=== PATIENT | male | born 1950 | race Caucasian/White ===

== ENCOUNTER 2018-03-12 09:09 | Inpatient (IN) | payer MEDICARE, MEDICAID ==
[~2018-03-12] VITALS: Ht 160 cm; Wt 68.9 kg
[~2018-03-12 09:09] MED LIST: AMLO10TA80 PO; ASPI-1159 PO; DIVA-18 PO; DIVA250T4 PO; ENAL5TAB PO; FAMO-134 PO; GABA100C PO; KEPP500 PO; LAM25 PO; LIP40 PO; NEPVIT PO; RISO02 PO
[2018-03-12] MEDS ORDERED: DIGO125T82 PO (10:06)
[2018-03-12] MEDS ORDERED: ASCO500C6 PO (10:06)
[2018-03-12] MEDS ORDERED: ACET-2178 PO (10:06)
[2018-03-12] MEDS ORDERED: DULCOLAX (10:06)
[2018-03-12] MEDS ORDERED: NORCO (10:06)
[2018-03-12] MEDS ORDERED: FERROUS SULFATE (10:06)
[2018-03-12] MEDS ORDERED: NA P230E RC (10:06)
[2018-03-12] MEDS ORDERED: MOM PO (10:06)
[2018-03-12] MEDS ORDERED: MULT-1146 MT (10:06)
[2018-03-12] MEDS ORDERED: GABA-531 MT ×2 (10:06→18:03)
[2018-03-12] MEDS ORDERED: CRAN425C6 PO (10:06)
[2018-03-12] MEDS ORDERED: TRAMADOL 50MG TABLET PO ONE (10:15)
[2018-03-12] MEDS ORDERED: VANCOMYCIN 1 G PREMIX 200 ML IV SCH (10:15)
[2018-03-12 11:00] LABS: BASOPHILS % 0.3 % (0.0-2.0); EOSINOPHILS % 0.9 % (0.0-5.0); HEMATOCRIT. 37.1 % (42.0-52.0); HEMOGLOBIN. 12.3 g/dL (14.0-18.0); LYMPHOCYTES % 19.6 % (20.0-50.0); MEAN CORPUSCULAR HEMOGLOBIN 29.9 pg (28.0-32.0); MEAN CORPUSCULAR VOLUME 90.6 fL (80.0-94.0); MEAN PLATELET VOLUME 7.5 fl (7.4-10.4); NEUTROPHILS % 74.2 % (40.0-76.0); PLATELET 581 x1000/uL (130-400); RED CELL DISTRIBUTION WIDTH 13.7 % (11.6-14.6)
[2018-03-12 11:05] LABS: CHLORIDE 100 mEq/L (98-107)
[2018-03-12 11:06] LABS: INR 1.3
[2018-03-12] MEDS ORDERED: HYDROCODONE/ACETAMINOPHEN 5/325MG TABLET PO ONE (12:15)
[2018-03-12 14:30] VITALS: BP 142/89
[2018-03-12 16:33] VITALS: BP 142/89
[2018-03-12] MEDS ORDERED: ASCO500C15 MT (18:03)
[2018-03-12] MEDS ORDERED: FERR220S12 GT (18:03)
[2018-03-12] MEDS ORDERED: KEPP500 MT (18:03)
[2018-03-12] MEDS ORDERED: HYDR-4001 MT (18:03)
[2018-03-12] MEDS ORDERED: BISA-81 RC (18:03)
[2018-03-12] MEDS ORDERED: MOM MT (18:03)
[2018-03-12] MEDS ORDERED: VANCOMYCIN 500 MG in DEXT 5% WATER 100 ML IV SCH (18:45)
[2018-03-12] MEDS ORDERED: ACETAMINOPHEN 650MG/20.3ML UDC PO PRN (18:45)
[2018-03-12] MEDS ORDERED: DEXTROSE 50% WATER 50ML SYRINGE IV PRN (18:45)
[2018-03-12] MEDS ORDERED: IPRATROPIUM/ALBUTEROL 0.5-3(2.5)MG/3ML NEB HHN PRN (18:52)
[2018-03-12 19:57] VITALS: BP 132/74
[2018-03-12] MEDS: BLOOD SUGAR DIAGNOSTIC STRIP TEST SCH (22:00)
[2018-03-12] MEDS: ENOXAPARIN 40MG/0.4ML SYR SUBCUT SCH (22:18)
[2018-03-12] MEDS: VANCOMYCIN 1 G PREMIX 200 ML IV SCH (22:20)
[2018-03-12] MEDS: SODIUM CHLORIDE 0.9% 1,000 ML IV SCH (22:20)
[2018-03-12] MEDS: LEVETIRACETAM 500MG/5ML CUP PO SCH (22:21)
[2018-03-12] MEDS: GABAPENTIN SOLN 50MG/1ML UDC PO SCH (22:21)
[2018-03-12] MEDS: INSULIN LISPRO 100 UNITS/ML SUBCUT SCH (22:32)
[2018-03-13] VITALS: BP 111/64
[2018-03-13] MEDS: HYDROCODONE/ACETAMINOPHEN 5/325MG TABLET PO PRN ×3 (00:57→14:48)
[2018-03-13 04:00] VITALS: BP 126/69
[2018-03-13] MEDS: INSULIN LISPRO 100 UNITS/ML SUBCUT SCH ×4 (07:50→21:00)
[2018-03-13 08:00] VITALS: BP 130/64
[2018-03-13] MEDS: BLOOD SUGAR DIAGNOSTIC STRIP TEST SCH ×4 (08:06→21:00)
[2018-03-13 08:46] LABS: BASOPHILS % 0.2 % (0.0-2.0); EOSINOPHILS % 1.4 % (0.0-5.0); HEMATOCRIT. 36.5 % (42.0-52.0); HEMOGLOBIN. 12.1 g/dL (14.0-18.0); LYMPHOCYTES % 23.5 % (20.0-50.0); MEAN CORPUSCULAR HEMOGLOBIN 29.8 pg (28.0-32.0); MEAN CORPUSCULAR VOLUME 89.9 fL (80.0-94.0); MEAN PLATELET VOLUME 7.9 fl (7.4-10.4); MONOCYTES % 5.5 % (2.0-8.0); NEUTROPHILS % 69.4 % (40.0-76.0); PLATELET 550 x1000/uL (130-400); RED BLOOD CELL COUNT 4.06 mill/uL (4.7-6.1); RED CELL DISTRIBUTION WIDTH 13.5 % (11.6-14.6)
[2018-03-13 08:48] LABS: CHLORIDE 104 mEq/L (98-107)
[2018-03-13] MEDS ORDERED: LORAZEPAM 2MG/ML CPJ IV PRN (10:15)
[2018-03-13] MEDS ORDERED: MAGNESIUM/ALUMINUM HYDROXIDE/SIMETHICONE 30ML UDC PO PRN (10:15)
[2018-03-13] MEDS ORDERED: DOCUSATE SODIUM 100MG CAPSULE PO PRN (10:15)
[2018-03-13] MEDS ORDERED: ONDANSETRON HCL 4MG/2ML VIAL IV PRN (10:15)
[2018-03-13] MEDS: ASCORBIC ACID 500 MG TABLET PO SCH (10:20)
[2018-03-13] MEDS: VANCOMYCIN 1 G PREMIX 200 ML IV SCH ×2 (10:20→21:00)
[2018-03-13] MEDS: LEVETIRACETAM 500MG/5ML CUP PO SCH ×2 (10:20→22:51)
[2018-03-13] MEDS: GABAPENTIN SOLN 50MG/1ML UDC PO SCH ×3 (10:20→17:56)
[2018-03-13] MEDS: MULTIVITAMINS,THER W-MINERALS TABLET PO SCH (10:21)
[2018-03-13] MEDS: FAMOTIDINE 20MG TABLET PO SCH (10:21)
[2018-03-13 12:00] VITALS: BP 133/79
[2018-03-13] MEDS: AMIODARONE HCL 200 MG TABLET PO SCH (14:46)
[2018-03-13 16:00] VITALS: BP 133/73
[2018-03-13] MEDS: SODIUM CHLORIDE 0.9% 1,000 ML IV SCH (17:56)
[2018-03-13] MEDS: DIGOXIN 125MCG TABLET PO SCH (17:56)
[2018-03-13] MEDS: ENOXAPARIN 40MG/0.4ML SYR SUBCUT SCH (20:00)
[2018-03-13 20:07] VITALS: BP 130/72
[2018-03-14] VITALS: BP 130/75
[2018-03-14 04:00] VITALS: BP 134/76
[2018-03-14] MEDS: SODIUM CHLORIDE 0.9% 1,000 ML IV SCH ×2 (04:13→21:44)
[2018-03-14] MEDS: BLOOD SUGAR DIAGNOSTIC STRIP TEST SCH ×4 (06:27→21:43)
[2018-03-14 07:07] LABS: BASOPHILS % 0.4 % (0.0-2.0); EOSINOPHILS % 1.4 % (0.0-5.0); HEMATOCRIT. 36.1 % (42.0-52.0); HEMOGLOBIN. 11.8 g/dL (14.0-18.0); LYMPHOCYTES % 21.4 % (20.0-50.0); MEAN CORPUSCULAR HEMOGLOBIN 29.7 pg (28.0-32.0); MEAN CORPUSCULAR VOLUME 90.7 fL (80.0-94.0); MEAN PLATELET VOLUME 7.8 fl (7.4-10.4); MONOCYTES % 4.9 % (2.0-8.0); NEUTROPHILS % 71.9 % (40.0-76.0); PLATELET 561 x1000/uL (130-400); RED BLOOD CELL COUNT 3.98 mill/uL (4.7-6.1); RED CELL DISTRIBUTION WIDTH 13.6 % (11.6-14.6)
[2018-03-14 07:35] LABS: CHLORIDE 105 mEq/L (98-107)
[2018-03-14] MEDS: INSULIN LISPRO 100 UNITS/ML SUBCUT SCH ×4 (07:43→21:00)
[2018-03-14 07:44] LABS: VANCOMYCIN TROUGH 19.7 ug/mL (5.0-10.0)
[2018-03-14 08:00] VITALS: BP 157/76
[2018-03-14] MEDS: ASCORBIC ACID 500 MG TABLET PO SCH (09:00)
[2018-03-14] MEDS: GABAPENTIN SOLN 50MG/1ML UDC PO SCH ×3 (09:47→17:00)
[2018-03-14] MEDS: LEVETIRACETAM 500MG/5ML CUP PO SCH ×2 (09:47→21:28)
[2018-03-14] MEDS: VANCOMYCIN 1 G PREMIX 200 ML IV SCH ×2 (09:47→21:28)
[2018-03-14] MEDS: AMIODARONE HCL 200 MG TABLET PO SCH (09:48)
[2018-03-14] MEDS: MULTIVITAMINS,THER W-MINERALS TABLET PO SCH (09:48)
[2018-03-14] MEDS: FAMOTIDINE 20MG TABLET PO SCH (09:48)
[2018-03-14 12:00] VITALS: BP 141/76
[2018-03-14] MEDS: CEFEPIME 1,000 MG in DEXTROSE 5% WATER 50 ML IV SCH ×2 (15:17→23:22)
[2018-03-14] MEDS: HYDROCODONE/ACETAMINOPHEN 5/325MG TABLET PO PRN ×2 (15:31→21:44)
[2018-03-14 16:00] VITALS: BP 99/74
[2018-03-14] MEDS: DIGOXIN 125MCG TABLET PO SCH (19:24)
[2018-03-14 19:34] VITALS: BP 142/68
[2018-03-14] MEDS: IPRATROPIUM/ALBUTEROL 0.5-3(2.5)MG/3ML NEB HHN SCH (20:22)
[2018-03-14] MEDS ORDERED: CEFEPIME HCL 1000MG/VIAL INJ IM SCH (21:00)
[2018-03-14] MEDS: ENOXAPARIN 40MG/0.4ML SYR SUBCUT SCH (21:28)
[2018-03-15 00:30] VITALS: BP 111/82
[2018-03-15] MEDS: HYDROCODONE/ACETAMINOPHEN 5/325MG TABLET PO PRN ×3 (02:00→16:10)
[2018-03-15] MEDS: IPRATROPIUM/ALBUTEROL 0.5-3(2.5)MG/3ML NEB HHN SCH ×4 (02:27→21:14)
[2018-03-15 05:09] VITALS: BP 131/80
[2018-03-15] MEDS: BLOOD SUGAR DIAGNOSTIC STRIP TEST SCH ×4 (07:20→21:00)
[2018-03-15 07:45] VITALS: BP 97/66
[2018-03-15] MEDS: INSULIN LISPRO 100 UNITS/ML SUBCUT SCH ×4 (07:50→21:00)
[2018-03-15] MEDS: AMIODARONE HCL 200 MG TABLET PO SCH ×2 (09:00→16:09)
[2018-03-15] MEDS: GABAPENTIN SOLN 50MG/1ML UDC PO SCH ×3 (09:00→20:00)
[2018-03-15] MEDS: LEVETIRACETAM 500MG/5ML CUP PO SCH ×2 (10:30→22:50)
[2018-03-15] MEDS: ASCORBIC ACID 500 MG TABLET PO SCH (10:30)
[2018-03-15] MEDS: FAMOTIDINE 20MG TABLET PO SCH (10:30)
[2018-03-15] MEDS: CEFEPIME 1,000 MG in DEXTROSE 5% WATER 50 ML IV SCH ×2 (10:31→22:50)
[2018-03-15] MEDS: VANCOMYCIN 1 G PREMIX 200 ML IV SCH ×2 (10:46→22:49)
[2018-03-15] MEDS: MULTIVITAMINS,THER W-MINERALS TABLET PO SCH (10:47)
[2018-03-15 11:44] VITALS: BP 109/45
[2018-03-15] MEDS: SODIUM CHLORIDE 0.9% 1,000 ML IV SCH (15:20)
[2018-03-15] MEDS: DIGOXIN 125MCG TABLET PO SCH (20:00)
[2018-03-15 20:11] VITALS: BP 130/76
[2018-03-15] MEDS: ENOXAPARIN 40MG/0.4ML SYR SUBCUT SCH (22:50)
[2018-03-16 00:10] VITALS: BP 141/78
[2018-03-16 05:10] VITALS: BP 136/82
[2018-03-16 06:07] LABS: CLARITY URINE CLEAR (CLEAR); COLOR URINE YELLOW (YELLOW); KETONES URINE NEGATIVE (NEGATIVE); LEUKOCYTE ESTERASE URINE NEGATIVE (NEGATIVE); NITRITE URINE NEGATIVE (NEGATIVE); OCCULT BLOOD URINE NEGATIVE (NEGATIVE); PROTEIN URINE NEGATIVE (NEGATIVE); SPECIFIC GRAVITY URINE 1.006 (1.005-1.030); UROBILINOGEN URINE 0.2 E.U./dL (0.2-1.0)
[2018-03-16] MEDS: SODIUM CHLORIDE 0.9% 1,000 ML IV SCH (06:13)
[2018-03-16] MEDS: BLOOD SUGAR DIAGNOSTIC STRIP TEST SCH ×4 (06:33→20:58)
[2018-03-16] MEDS: INSULIN LISPRO 100 UNITS/ML SUBCUT SCH ×4 (07:50→20:58)
[2018-03-16 08:00] VITALS: BP 156/87
[2018-03-16] MEDS: IPRATROPIUM/ALBUTEROL 0.5-3(2.5)MG/3ML NEB HHN SCH ×3 (09:10→20:35)
[2018-03-16] MEDS: CEFEPIME 1,000 MG in DEXTROSE 5% WATER 50 ML IV SCH ×2 (09:33→20:58)
[2018-03-16] MEDS: GABAPENTIN SOLN 50MG/1ML UDC PO SCH ×3 (09:33→17:00)
[2018-03-16] MEDS: MULTIVITAMINS,THER W-MINERALS TABLET PO SCH (09:34)
[2018-03-16] MEDS: FAMOTIDINE 20MG TABLET PO SCH (09:34)
[2018-03-16] MEDS: ASCORBIC ACID 500 MG TABLET PO SCH (09:34)
[2018-03-16] MEDS: LEVETIRACETAM 500MG/5ML CUP PO SCH ×2 (09:34→20:58)
[2018-03-16] MEDS: VANCOMYCIN 1 G PREMIX 200 ML IV SCH ×2 (10:25→20:58)
[2018-03-16] MEDS: HYDROCODONE/ACETAMINOPHEN 5/325MG TABLET PO PRN ×2 (10:25→21:04)
[2018-03-16 12:00] VITALS: BP 138/80
[2018-03-16] MEDS ORDERED: SODIUM BICARBONATE 4% (2.4MEQ) 5ML VIAL IV ONE (12:51)
[2018-03-16] MEDS ORDERED: LIDOCAINE HCL/PF 1% 10 MG/ML 5ML VIAL ONE (12:51)
[2018-03-16] MEDS ORDERED: CLONIDINE 0.1MG TABLET PO PRN (13:15)
[2018-03-16] MEDS: AMLODIPINE 2.5MG TABLET PO SCH ×2 (13:15→20:58)
[2018-03-16] MEDS ORDERED: CLONIDINE 0.2MG TABLET PO PRN (13:15)
[2018-03-16 16:00] VITALS: BP 136/86
[2018-03-16 20:00] VITALS: BP 172/85
[2018-03-16] MEDS: ENOXAPARIN 40MG/0.4ML SYR SUBCUT SCH (20:57)
[2018-03-17] VITALS: BP 148/78
[2018-03-17] MEDS: SODIUM CHLORIDE 0.9% 1,000 ML IV SCH (00:30)
[2018-03-17] MEDS: IPRATROPIUM/ALBUTEROL 0.5-3(2.5)MG/3ML NEB HHN SCH ×4 (01:50→20:18)
[2018-03-17 04:00] VITALS: BP 156/79
[2018-03-17] MEDS: BLOOD SUGAR DIAGNOSTIC STRIP TEST SCH ×5 (06:20→21:49)
[2018-03-17 07:20] LABS: BASOPHILS % 0.7 % (0.0-2.0); HEMATOCRIT. 39.7 % (42.0-52.0); HEMOGLOBIN. 12.8 g/dL (14.0-18.0); LYMPHOCYTES % 30.3 % (20.0-50.0); MEAN CORPUSCULAR HEMOGLOBIN 29.2 pg (28.0-32.0); MEAN CORPUSCULAR VOLUME 90.8 fL (80.0-94.0); RED BLOOD CELL COUNT 4.37 mill/uL (4.7-6.1); RED CELL DISTRIBUTION WIDTH 13.8 % (11.6-14.6)
[2018-03-17 07:31] LABS: CHLORIDE 107 mEq/L (98-107)
[2018-03-17] MEDS: INSULIN LISPRO 100 UNITS/ML SUBCUT SCH ×4 (07:50→21:00)
[2018-03-17 07:57] VITALS: BP 147/84
[2018-03-17] MEDS: AMIODARONE HCL 200 MG TABLET PO SCH (08:55)
[2018-03-17] MEDS: LEVETIRACETAM 500MG/5ML CUP PO SCH ×2 (08:55→21:47)
[2018-03-17] MEDS: MULTIVITAMINS,THER W-MINERALS TABLET PO SCH (08:55)
[2018-03-17] MEDS: ASCORBIC ACID 500 MG TABLET PO SCH (08:55)
[2018-03-17] MEDS: GABAPENTIN SOLN 50MG/1ML UDC PO SCH ×3 (08:55→17:00)
[2018-03-17] MEDS: FAMOTIDINE 20MG TABLET PO SCH (08:55)
[2018-03-17] MEDS: AMLODIPINE 2.5MG TABLET PO SCH ×2 (08:55→21:48)
[2018-03-17] MEDS: HYDROCODONE/ACETAMINOPHEN 5/325MG TABLET PO PRN (08:56)
[2018-03-17] MEDS: CEFEPIME 1,000 MG in DEXTROSE 5% WATER 50 ML IV SCH ×2 (08:56→21:47)
[2018-03-17] MEDS: VANCOMYCIN 1 G PREMIX 200 ML IV SCH ×2 (11:23→21:48)
[2018-03-17 12:05] VITALS: BP 154/89
[2018-03-17] MEDS ORDERED: NORMAL SALINE 0.9% 10 ML SYR ONE (12:15)
[2018-03-17] MEDS ORDERED: BUPIVACAINE HCL/PF 0.5% (5MG/ML) 10ML ONE (12:15)
[2018-03-17] MEDS ORDERED: GENTAMICIN SULF 40MG/ML 2ML VIAL ONE (12:15)
[2018-03-17] MEDS ORDERED: BACITRACIN 50,000 UNITS/VIAL ONE (12:16)
[2018-03-17] MEDS ORDERED: LIDOCAINE HCL/PF 1% 10 MG/ML 5ML VIAL ONE ×2 (12:16→14:59)
[2018-03-17 12:18] LABS: PLATELET 407 x1000/uL (130-400)
[2018-03-17] MEDS ORDERED: ALBUTEROL 90MCG/PUFF 17GM INHALER INH ONE (14:54)
[2018-03-17] MEDS ORDERED: PROPOFOL 200MG/20ML VIAL IV ONE (14:57)
[2018-03-17] MEDS ORDERED: FENTANYL CITRATE/PF 50MCG/ML 2ML VIAL ONE (14:57)
[2018-03-17] MEDS ORDERED: MIDAZOLAM HCL 2 MG/2 ML VIAL ONE (14:57)
[2018-03-17] MEDS ORDERED: PETROLATUM,WHITE OPHTH OINT 3.5GM BOTHEYE NR (15:15)
[2018-03-17] MEDS ORDERED: HYDROMORPHONE HCL/PF 2MG/ML CPJ IV PRN (16:15)
[2018-03-17] MEDS ORDERED: ONDANSETRON HCL 4MG/2ML VIAL IV PRN (16:15)
[2018-03-17] MEDS ORDERED: SODIUM CHLORIDE 0.9% 1,000 ML IV ONE (16:30)
[2018-03-17] MEDS: ENOXAPARIN 40MG/0.4ML SYR SUBCUT SCH (21:47)
[2018-03-18] VITALS (8 sets, daily range): BP systolic 139–178; BP diastolic 69–87
[2018-03-18] MEDS: IPRATROPIUM/ALBUTEROL 0.5-3(2.5)MG/3ML NEB HHN SCH ×4 (02:20→20:00)
[2018-03-18 06:36] LABS: BASOPHILS % 0.4 % (0.0-2.0); EOSINOPHILS % 0.6 % (0.0-5.0); HEMATOCRIT. 37.4 % (42.0-52.0); HEMOGLOBIN. 12.2 g/dL (14.0-18.0); LYMPHOCYTES % 24.8 % (20.0-50.0); MEAN CORPUSCULAR HEMOGLOBIN 29.5 pg (28.0-32.0); MEAN CORPUSCULAR VOLUME 90.5 fL (80.0-94.0); MONOCYTES % 6.8 % (2.0-8.0); NEUTROPHILS % 67.4 % (40.0-76.0); PLATELET 437 x1000/uL (130-400); RED BLOOD CELL COUNT 4.13 mill/uL (4.7-6.1); RED CELL DISTRIBUTION WIDTH 13.6 % (11.6-14.6)
[2018-03-18] MEDS: BLOOD SUGAR DIAGNOSTIC STRIP TEST SCH ×4 (06:39→21:13)
[2018-03-18] MEDS: INSULIN LISPRO 100 UNITS/ML SUBCUT SCH ×4 (06:40→21:00)
[2018-03-18 07:23] LABS: CHLORIDE 106 mEq/L (98-107)
[2018-03-18] MEDS ORDERED: LOSARTAN POTASSIUM 25 MG TABLET PO SCH (10:30)
[2018-03-18] MEDS: CEFEPIME 1,000 MG in DEXTROSE 5% WATER 50 ML IV SCH ×2 (10:31→21:10)
[2018-03-18] MEDS: FAMOTIDINE 20MG TABLET PO SCH (10:34)
[2018-03-18] MEDS: AMIODARONE HCL 200 MG TABLET PO SCH (10:37)
[2018-03-18] MEDS: ASCORBIC ACID 500 MG TABLET PO SCH (10:37)
[2018-03-18] MEDS: MULTIVITAMINS,THER W-MINERALS TABLET PO SCH (10:37)
[2018-03-18] MEDS: GABAPENTIN SOLN 50MG/1ML UDC PO SCH ×3 (10:37→21:10)
[2018-03-18] MEDS: LEVETIRACETAM 500MG/5ML CUP PO SCH ×2 (10:38→21:21)
[2018-03-18] MEDS: VANCOMYCIN 1 G PREMIX 200 ML IV SCH ×2 (11:54→21:10)
[2018-03-18] MEDS: HYDROCODONE/ACETAMINOPHEN 5/325MG TABLET PO PRN ×2 (14:12→21:37)
[2018-03-18] MEDS ORDERED: AMLODIPINE 5MG TABLET PO SCH (21:00)
[2018-03-18] MEDS: ENOXAPARIN 40MG/0.4ML SYR SUBCUT SCH (21:11)
== END 2018-03-18 22:30 | DRG 853 ==
LOC: ER 09:37 → 6WST 11:53 → EDBEDREQ 11:55 → ENRESERV 12:21
PROVIDERS: ADMIT Internal Medicine; ATTEND Internal Medicine
PROC: 02HV33Z Insertion of Infusion Device into Superior Vena Cava, Percutaneous Approach (ICD-10-PCS; 2018-03-16)
PROC: B5181ZA Fluoroscopy of Superior Vena Cava using Low Osmolar Contrast, Guidance (ICD-10-PCS; 2018-03-16)
PROC: B548ZZA Ultrasonography of Superior Vena Cava, Guidance (ICD-10-PCS; 2018-03-16)
PROC: 0Q9N0ZX Drainage of Right Metatarsal, Open Approach, Diagnostic (ICD-10-PCS; 2018-03-17)
PROC: 0Y6M0ZC Detachment at Right Foot, Partial 3rd Ray, Open Approach (ICD-10-PCS; principal; 2018-03-17 14:00)
DX: A41.9 Sepsis, unspecified organism (principal); E43 Unspecified severe protein-calorie malnutrition; L03.115 Cellulitis of right lower limb; J96.10 Chronic respiratory failure, unspecified whether with hypoxia or hypercapnia; F03.91 Unspecified dementia, unspecified severity, with behavioral disturbance; M86.8X7 Other osteomyelitis, ankle and foot; E11.52 Type 2 diabetes mellitus with diabetic peripheral angiopathy with gangrene; I69.351 Hemiplegia and hemiparesis following cerebral infarction affecting right dominant side; L02.611 Cutaneous abscess of right foot; M84.40XA Pathological fracture, unspecified site, initial encounter for fracture; R47.01 Aphasia; I25.10 Atherosclerotic heart disease of native coronary artery without angina pectoris; G40.909 Epilepsy, unspecified, not intractable, without status epilepticus; F41.9 Anxiety disorder, unspecified; M79.2 Neuralgia and neuritis, unspecified; E11.69 Type 2 diabetes mellitus with other specified complication; I11.9 Hypertensive heart disease without heart failure; I48.0 Paroxysmal atrial fibrillation; J44.9 Chronic obstructive pulmonary disease, unspecified; M19.90 Unspecified osteoarthritis, unspecified site; K21.9 Gastro-esophageal reflux disease without esophagitis; Z79.899 Other long term (current) drug therapy; Z87.01 Personal history of pneumonia (recurrent); Z87.891 Personal history of nicotine dependence; Z89.421 Acquired absence of other right toe(s); Z93.0 Tracheostomy status; Z93.1 Gastrostomy status; Z68.26 Body mass index [BMI] 26.0-26.9, adult
CPT/HCPCS: 36415; 36569; 71045; 73630; 76937; 77001; 80048; 80053; 80202; 81003; 82962; 83605; 83735; 85025; 85610; 87040; 87070; 87075; 87077; 87086; 87106; 87186; 87205; 88305; 88311; 93005; 94640; 96365; 99285; A4216; A6261; C1725; C1769; J0692; J1170; J1580; J1650; J1815; J2060; J2250; J2405; J2704; J3010; J3370; J3490; J7030; J7040; J7060; J7620